=== PATIENT | female | born 1960 | race Caucasian/White ===

== ENCOUNTER → 2019-12-07 | Outpatient (CLI) | payer OTHER ==
--- NOTE | 2019-12-07 17:43 | CT ---
EXAM DESCRIPTION: Maxillofacial: Computed Tomography. CLINICAL HISTORY: 59 years Female HEADACHE COMPARISON: None Available. TECHNIQUE: Spiral, axial 2.5 x 2.5 mm scans through the paranasal sinuses and maxillofacial bones without contrast. Axial soft tissue and bone algorithm. Coronal and sagittal 2.0 mm reconstructions. Total Exam DLP: 257.1 mGy-cm. This exam was performed according to our departmental CT dose-optimization program which includes automated exposure control, adjustment of the mA and/or kV according to patient size and/or use of iterative reconstruction technique; to reduce radiation dose to as low as reasonably achievable (ALARA). FINDINGS: Right maxillary antrum is almost completely opacified with only a small pocket of air noted anteriorly. Ostiomeatal unit is obstructed on the right. Posterior and anterior right ethmoid air cells are almost completely opacified.. Minimal thickening in the base of the left maxillary antrum. Minimal narrowing of the left ostiomeatal unit but no obstruction. Fluid and mucosal thickening in the posterior left ethmoid air cells. Mucoperiosteal thickening in the bilateral sphenoid air cells. Sphenoid no nasal ostia are partially obstructed bilaterally. No air-fluid levels. Frontal sinuses are underdeveloped. Fluid and or mucosal thickening involving most of the right frontal sinus with the left compartment well aerated. Nasal septum is significantly deviated to the right of midline with right side spur in the mid posterior aspect. Less right deviation of the anterior septum. Minimal turbinate mucosal hypertrophy bilaterally. Right superior nasal passageway is partially obstructed. No definite bone destruction. Included mastoid air cells are well aerated bilaterally with the internal auditory ossicles grossly normal and no fluid in the tympanic cavity or significant thickening of the tympanic membrane. IMPRESSION: 1. Acute and chronic sinusitis involving mostly the right maxillary antra, right sphenoid air cells, with obstruction of the right ostiomeatal unit. Also involvement of the right frontal sinus cavity. 2. Minimal fluid/thickening in the left posterior ethmoid air cells and minimal narrowing of the left ostiomeatal unit. 3. Bilateral chronic thickening of the sphenoid air cells. Sphenoid nasal ostia are partially obstructed. 4. Nasal septum is significantly deviated to the right more posterior and mid septum than anterior septum. Electronically signed by: Fernando Dan MD 12/07/2019 5:42 PM [facility] [employer]
== END ==
LOC: CT 13:00
PROVIDERS: ATTEND Family Medicine
DX: J01.90 Acute sinusitis, unspecified (principal); J32.9 Chronic sinusitis, unspecified; J34.9 Unspecified disorder of nose and nasal sinuses; J34.2 Deviated nasal septum